=== PATIENT | female | born 1980 | race Hispanic/Latino ===

== ENCOUNTER 2019-10-09 10:46 | Emergency (ER) | payer BC ==
--- OUTSIDE RECORDS SUMMARY | 2019-10-09 10:50 | XMS REPORT | Continuity of Care Document ---
:1980 Author Organization [facility] Jeremias Information [place] Care Team Providers Name Role Phone [facility] Information Exchange Unavailable Un available Problems Problem Status Onset Classification Date Comments Sourc e Date Reported Active [facility] 7 Jeremias 2, 0, EDC: Active [facility] 3//- 39 7 [place] WKS 0 DAYS PRIOR FOLLOW UP Active [facility] 7 [place] Patient Resolved Problem 10/17/2018 currently 6 Olayinka Rodriguez OPID (finding) Jennifer ABDOMINAL Active [facility] PAIN 6 [place] CRAMPING Active [place] [id number] Jeremias ABDOMINAL Active [facility] CRAMPING 6 Jerem[place] HX Active [facility] , HX 6 [place] PRE-ECLAMPSIA Active [facility] 6 [place] Gastric ulcer Resolved Problem 10/17/2018 (disorder) 6 [place] OPID Jennifer 625.9 - FEM Active OPIMatias GENITAL SYM 5 [place] Pain Active Problem 10/17/2018 (finding) Olayinka Rodriguez OPID Jennifer ENCOUNTER FOR Active Memori al Jeremias DELIVERY WITHOUT Medications Medication Details Route Status Patient Ordering Order Source Instructions Provider Date ferrous sulfate 325 mg = 1 tab, Active 325 MG Oral Tablet PO, TID, # 90 2016 Jennifer tab, 1 Refill(s) sodium chloride 1,000 mL, Rate: No Longer 0.9% 1000 ml INJ 100 ml/hr, Active 2016 [place] farida 1,000 mL Infuse over: 10 hr, Route: IV, Dosing Weight 70.455 kg, Total Volume: 1,000, Start date: 07/05/16 8:06:00 PERINATAL INSTRUCTOR, Duration: 30 day, Stop date: 08/04/16 8:05:00 CDT Benadryl 50 mg, 2 tab, Inactive Route: PO, Drug 2016 [place] form: TAB, ONCE, Dosing Weight 70.455, kg, Start date: 07/05/16 7:47:00 PERINATAL INSTRUCTOR, Stop date: 07/05/16 7:47:00 PERINATAL INSTRUCTOR Benadryl Notes: (Same Inactive as: Benadryl) 2016 [place] ferrous sulfate Notes: Give No Longer with food. iron Active 2016 [place] elemental 88sh=885ml as ferrous sulfate Dose=___mg elemental iron sennosides, LONGTERM Notes: (Same No Longer H as: Senokot) Active 2016 [place] Acetaminophen 300 1 - 2 tab, PO, Active MG / Codeine Q4H, PRN Pain, 2016 [place] [facility] Phosphate 15 MG # 30 tab, 0 Oral Tablet Refill(s) Docusate Sodium 100 mg = 1 cap, Active 100 MG Oral PO, BID, PRN 2016 [place] Capsule [Colace] Constipation, # 60 cap, 0 Refill(s) Motrin 600 mg oral 600 mg = 1 tab, Active 07/04 tablet PO, Q6H, PRN 2017 [place] Pain, take with food, # 30 tab, 0 Refill(s) Ibuprofen Notes: (Same No Longer as: Motrin) "Do Active 2016 [place] Not Crush" Take with food. Phenergan Notes: Do not No Longer give IV push. Active 2016 [place] (Same as: Phenergan) Saline Flush 0.9% Notes: (Same No Longer as: BD Active 2016 [place] Posiflush) 1 tab, Route: No Longer Multivitamins oral PO, Drug Form: Active 2016 [place] tablet TAB, Dosing Weight 70.455, kg, Daily, Start date: 07/03/16 9:00:00 PERINATAL INSTRUCTOR, Duration: 30 day, Stop date: 08/01/16 9:00:00 CDT Naloxone Notes: Same as No Longer Narcan Active 2016 [place] Acetaminophen Notes: Infuse No Longer over 15 minutes Active 2016 [place] Do not exceed 4gm/day of acetaminophen MEDICATION WASTE Product Size: 1000 mg Product Wasted: ___ mg Ketorolac 4 days No Longer MEDICATION Active 2016 [place] WASTE Product Size: 30 mg Product Wasted: ___ mg Diphenhydramine 12.5 mg, 0.5 No Longer H tab, Route: PO, Active 2016 [place] Drug form: TAB, Q6H, Dosing Weight 70.455, kg, PRN Itching, Start date: 07/03/16 8:07:00 PERINATAL INSTRUCTOR, Duration: 30 day, Stop date: 08/02/16 8:06:00 CDT Ondansetron Notes: (Same No Longer as: Zofran) Active 2016 [place] MEDICATION WASTE Product Size: 4 mg Product Wasted: ___ mg Morphine Notes: (Same No Longer as:MORPhine Active 2016 [place] Sulfate) 0.5 ML Bordetella Notes: (Tdap ) No Longer 07/03 pertussis For Adolecent Active 2016 [place] filamentous and Adult use hemagglutinin For IM Use. vaccine, Same as: Adacel inactivated 0.01 (Tdap) MG/ML / Bordetella pertussis fimbriae 2/3 vaccine, inactivated 0.01 MG/ML / Bordetella pertussis pertactin vaccine, inactivated 0.006 MG/ML / Bordetella pertussis toxoid vacci M-M-R II Notes: (Same No Longer as: M-M-R II) Active 2016 [place] (measles-mumps- rubella virus vaccine 0.5 ml INJ VL) WASTE: F/P - Red; E -Red GIVE PRIOR TO DISCHARGE Acetaminophen 325 Notes: Do not No Longer MG / Hydrocodone exceed 4gm/day Active 2016 [place] Bitartrate 10 MG of Oral Tablet acetaminophen. (Same as: [place] 325/10) Acetaminophen 325 Notes: (Same No Longer MG / Hydrocodone as: [place] Active 2016 Elizabeth and Bitartrate 5 MG 325/5) Do not Oral Tablet exceed 4gm/day of acetaminophen. Saline Flush 0.9% Notes: (Same No Longer as: BD Active 2016 [place] Posiflush) zolpidem Notes: (Same No Longer As: Ambien) Active 2016 [place] Simethicone Notes: (Same No Longer as: Mylicon) Active 2016 [place] Acetaminophen Notes: Do not No Longer exceed 4 Active 2016 [place] gm/day. (Same as: Tylenol) lanolin topical 1 appl, Route: No Longer cream TOP, PRN, Drug Active 2016 [place] form: CRM, PRN Other -See Comment, Start date: 07/03/16 7:21:00 PERINATAL INSTRUCTOR, Duration: 30 day, Stop date: 08/02/16 8:20:00 CDT Docusate Notes: (Same No Longer as: Colace) (Do Active 2016 [place] Not Crush) Bisacodyl Notes: (Same No Longer As: Dulcolax, Active 2016 [place] Bisco-Lax) Lactated Ringers 1,000 mL, Rate: No Longer 07/03 1,000 mL 100 ml/hr, Active 2016 [place] Infuse over: 10 hr, Route: IV, Dosing Weight 70.455 kg, Total Volume: 1,000, Start date: 07/03/16 7:21:00 PERINATAL INSTRUCTOR, Duration: 30 day, Stop date: 08/02/16 7:20:00 CDT oxytocin 30 unit Notes: (Same Inactive H in D5LR 500mL 30 as: 2016 [facility] d unit OXYTOCIN-D5LR) Cefazolin Notes: Same as: Inactive Ancef 2016 [place] Misoprostol Notes: (Same Inactive as:Cytotec) 2016 [place] Take with food Methylergonovine Notes: (Same Inactive H as:Methergine) 2016 [place] Carboprost Notes: (Same Inactive As: Hemabate) 2016 [place] valacyclovir 1000 1 gm = 1 tab, No Longer MG Oral Tablet PO, Q8H, 0 Active 2016 [facility] nd [Valtrex] Refill(s) Morphine Notes: (Same Inactive as:MORPhine 2016 [place] Sulfate) Ondansetron Notes: (Same Inactive as: Zofran) [address] [place] [address] MEDICATION WASTE Product Size: 4 mg Product Wasted: ___ mg Metoclopramide Notes: (Same Inactive as: Reglan) 2016 [place] oxytocin 30 unit Notes: (Same Inactive H in D5LR 500mL 30 as: 2016 [place] unit OXYTOCIN-D5LR) Citric Acid / Notes: (Same Inactive sodium citrate As: Bicitra) 2016 [facility] Terbutaline Notes: DO NOT Inactive USE IN JOURNEYMAN MECHANIC 2017 [place] AREA (Same As: Brethine) Calcium Chloride 1,000 mL, Rate: Inactive 0.0014 MEQ/ML / 125 ml/hr, 2016 [place] and Potassium Chloride Infuse over: 8 0.004 MEQ/ML / hr, Route: IV, Sodium Chloride Dosing Weight 0.103 MEQ/ML / 70.455 kg, Sodium Lactate Total Volume: 0.028 MEQ/ML 1,000, Start Injectable date: 07/03/16 Solution 6:16:00 PERINATAL INSTRUCTOR, Duration: 30 day, Stop date: 08/02/16 6:15:00 CDT Omeprazole 5 mg, Route: No Longer PO, Daily, Active 2015 [place] Dosing Weight 64.091, kg, Start date: 03/02/16 9:00:00 CDT, Duration: 30 day, Stop date: 03/31/16 9:00:00 PERINATAL INSTRUCTOR 1 tab, Route: No Longer Multivitamins with PO, Drug Form: Active 2015 [place] Folic Acid 0.4 mg TAB, Dosing oral tablet Weight 64.091, kg, Daily, Start date: 03/02/16 9:00:00 CDT, Duration: 30 day, Stop date: 03/31/16 9:00:00 PERINATAL INSTRUCTOR Aspirin Notes: Take No Longer with food. Active 2015 [place] Protonix Notes: Tablet No Longer should not be Active 2015 [place] chewed or crushed. Cholecalciferol 1 tab, CHEW, Active 400 UNT / Folic Daily, 0 2015 [place] Acid 1 MG / Refill(s) pyridoxine 2 MG / Riboflavin 1.7 MG / Vitamin B 12 0.008 MG Chewable Tablet Omeprazole PO, Daily, 0 Active Refill(s) 2015 [place] Aspirin 81 mg, PO, Active Daily, 0 2015 [place] Refill(s) Tylenol Notes: Do not Inactive exceed 4 2015 [place] gm/day. (Same as: Tylenol) Bicitra oral Notes: (Same Inactive solution As: Bicitra) 2015 [place] D5W in Lactated 1,000 mL, Rate: Inactive Ringers 1,000 mL 150 ml/hr, 2015 [facility] Infuse over: 6.7 hr, Route: IV, Dosing Weight 64.091 kg, Total Volume: 1,000, Start date: 03/01/16 19:07:00 CDT, Duration: 30 day, Stop date: 03/31/16 19:06:00 PERINATAL INSTRUCTOR Allergies, Adverse Reactions, Alerts Substance Category Reaction Severity Reaction Status Date Comments S ource type Reported No Known Assertion Drug OP ID Medication allergy Elizabeth and Allergies Immunizations No Data Provided for This Section Results Order Name Results Value Reference Date Interpretation Comments Lila rce Range HEMATOLOGY Hct 26.4 36.0 - 07/05 MH 48.0 [place] HEMATOLOGY Hgb 8.7 12.0 - 07/05 16.0 [place] BLOOD BANK RBC product Product available 2 07/05 [facility] RESULTS (07/05/16 6:58 AM) Comment: Darrell nd 07/05/2016 07:13 [id number]
Notified Tg Prado RN that the blood product was available 07/05/2016 07:11 [place] HEMATOLOGY Microcyte 1+ None Seen 07/05 MH *ABN* /2016 [place] (07/05/16 6:25 AM) HEMATOLOGY Eosinophils 0.2 0.0 - 0.5 07/05 MH # /2016 [place] HEMATOLOGY Basophils # 0.1 0.0 - 0.2 07/05 [place] HEMATOLOGY Segs 77.7 45.0 - 07/05 75.0 /2016 [place] HEMATOLOGY Monocytes 4.2 2.0 - 12.0 07/05 /2016 [place] HEMATOLOGY Lymphocytes 16.2 20.0 - 07/05 MH 40.0 [place] HEMATOLOGY Eosinophils 1.5 0.0 - 4.0 07/05 MH /2016 [place] HEMATOLOGY Basophils 0.4 0.0 - 1.0 03/ MH /2016 [place] HEMATOLOGY Segs-Bands # 9.6 1.5 - 8.1 07/05 MH /2016 [place] HEMATOLOGY Monocytes # 0.5 0.0 - 0.8 07/05 MH /2016 [place] HEMATOLOGY Lymphocytes 2.0 1.0 - 5.5 07/05 MH # /2017 [place] HEMATOLOGY WBC X 10x3 12.4 3.7 - 10.4 07/05 MH /2016 [place] HEMATOLOGY Hgb 6.3 12.0 - 07/05 Result MH 16.0 Comment: [place] Critical Result(s) called to Tristin at 07/05/2016 06:42 by tp. Read back OK. HEMATOLOGY Hct 19.7 36.0 - 07/05 MH 48.0 [place] HEMATOLOGY RBC X 10x6 2.71 4.20 - 07/05 MH 5.40 /2016 [place] HEMATOLOGY RDW 15.4 11.5 - 07/05 MH 14.5 [place] HEMATOLOGY MPV 8.3 7.4 - 10.4 07/05 MH /2016 [place] HEMATOLOGY Platelet 226 133 - 450 03 MH /2016 [place] HEMATOLOGY MCHC 32.1 32.0 - 03 MH 36.0 /2016 [place] HEMATOLOGY MCV 72.8 80.0 - 07/05 MH 98.0 /2016 [place] HEMATOLOGY MCH 23.4 27.0 - 07/05 MH 31.0 /2016 [place] HEMATOLOGY Hgb 7.0 12.0 - 07/04 Result 16.0 Comment: [place] Critical Result(s) called to Lisa at 07/04/2016 06:03 by tp. Read back OK. HEMATOLOGY Hct 21.3 36.0 - 07/04 MH 48.0 /2016 [place] BLOOD [facility] Rhig Reqd See Note 1 07/03 Result RESULTS (07/03/16 6:47 AM) /2016 Comment: Darrell nd 07/03/2016 07:27 [id number]
This patient is not a candidate for Rh(O)D immune globulin. BLOOD BANK ABO/Rh O POS 07/03 MH RESULTS /2016 [place] BLOOD BANK Antibody Negative 07/03 RESULTS Scrn (07/03/16 6:47 AM) /2017 [facility] HEMATOLOGY MPV 8.7 7.4 - 10.4 03 [place] HEMATOLOGY WBC X 10x3 8.6 3.7 - 10.4 07/03 [place] HEMATOLOGY RBC X 10x6 3.82 4.20 - 03/ MH 5.40 /2016 [place] HEMATOLOGY Platelet 252 133 - 450 03 [place] HEMATOLOGY MCH 23.6 27.0 - 03 MH 31.0 [place] HEMATOLOGY RDW 15.5 11.5 - 03 MH 14.5 [place] HEMATOLOGY MCV 72.6 80.0 - 03 MH 98.0 [place] HEMATOLOGY MCHC 32.6 32.0 - 03 MH 36.0 [place] HEMATOLOGY Microcyte 1+ None Seen 07/03 MH *ABN* /2016 [place] (07/03/16 6:47 AM) HEMATOLOGY Basophils # 0.1 0.0 - 0.2 07/03 [place] HEMATOLOGY Eosinophils 0.1 0.0 - 0.5 07/03 MH # /2016 [place] HEMATOLOGY Lymphocytes 29.2 20.0 - 03 MH 40.0 [place] HEMATOLOGY Segs-Bands # 5.4 1.5 - 8.1 07/03 [place] HEMATOLOGY Monocytes # 0.5 0.0 - 0.8 07/03 [place] HEMATOLOGY Segs 63.5 45.0 - 03 MH 75.0 [place] HEMATOLOGY Basophils 1.0 0.0 - 1.0 07/03 [place] HEMATOLOGY Monocytes 5.6 2.0 - 12.0 07/03 [place] HEMATOLOGY Eosinophils 0.7 0.0 - 4.0 07/03 [place] HEMATOLOGY Lymphocytes 2.5 1.0 - 5.5 07/03 MH # /2016 [place] IMMUNOLOGY Treponemal Non Reactive Non 07/03 MH Scr *NA* Reactive /2016 [place] (07/03/16 6:47 AM) IMMUNOLOGY Hep Bs Ag Negative Negative 07/03 *NA* /2016 [place] (07/03/16 6:47 AM) CHEM PANEL Lipase Lvl 149 73 - 393 03/02 [place] CHEM PANEL Amylase Lvl 54 25 - 115 03/02 [place] ELECTROLYTE AGAP 13.8 10.0 - 03/02 S 20.0 [place] ELECTROLYTE B/C Ratio 10 6 - 25 03/02 [place] ELECTROLYTE A/G Ratio 0.7 0.7 - 1.6 03/02 [place] ELECTROLYTE Globulin 4.3 2.7 - 4.2 03/02 [place] ELECTROLYTE eGFR 112 03/02 S Comment: The [place] eGFR is calculated using the CKD-EPI formula. In most young, healthy individuals the eGFR will be >90 mL/min/1.73m2 . The eGFR declines with age. An eGFR of 60-89 may be normal in some populations, particularly the elderly, for whom the CKD-EPI formula has not been extensively validated. Use of the eGFR is not recommended in the following populations:< br/>
Willa viduals with unstable creatinine concentration s, including patients and those with serious co-morbid conditions.<b r/>
Patie nts with extremes in muscle mass or diet.

The data above are obtained from the National Kidney Disease Education Program (NKDEP) which additionally recommends that when the eGFR is used in patients with extremes of body mass index for purposes of drug dosing, the eGFR should be multiplied by the estimated BMI. ELECTROLYTE Total 7.1 6.4 - 8.4 03/02 S Protein [place] ELECTROLYTE Bili Total 0.3 0.2 - 1.3 03/02 [place] ELECTROLYTE ASPARTATE 15 0 - 37 03/02 S TRANSAMINASE [place] ELECTROLYTE Calcium Lvl 8.5 8.5 - 10.5 03/02 [place] ELECTROLYTE ALANINE 17 0 - 65 03/02 S AMINOTRANSFE [place] RAS ELECTROLYTE Albumin Lvl 2.8 3.5 - 5.0 03/02 [place] ELECTROLYTE Alk Phos 65 39 - 136 03/02 [place] ELECTROLYTE Glucose Lvl 86 70 - 99 03/02 [place] ELECTROLYTE BUN 7 7 - 22 03/02 S [place] ELECTROLYTE Creatinine 0.71 0.50 - 03/02 S Lvl 1.40 [place] ELECTROLYTE Sodium Lvl 140 135 - 145 03/02 S [place] ELECTROLYTE Chloride Lvl 109 95 - 109 03/02 MH S [place] ELECTROLYTE Potassium 3.8 3.5 - 5.1 03/02 MH S Lvl /2015 [place] ELECTROLYTE CO2 21 24 - 32 03/02 MH S [place] HEMATOLOGY MCH 28.9 27.0 - 03/02 MH 31.0 [place] HEMATOLOGY Hct 31.8 36.0 - 03/02 MH 48.0 [place] HEMATOLOGY Hgb 11.0 12.0 - 03/02 MH 16.0 [place] HEMATOLOGY RBC X 10x6 3.82 4.20 - 03/02 MH 5.40 [place] HEMATOLOGY MCHC 34.8 32.0 - 03/02 MH 36.0 [place] HEMATOLOGY MPV 8.2 7.4 - 10.4 03/02 [place] HEMATOLOGY RDW 12.9 11.5 - 03/02 MH 14. [place] HEMATOLOGY Platelet 240 133 - 450 03/02 [place] HEMATOLOGY WBC X 10x3 7.8 3.7 - 10.4 03/02 [place] HEMATOLOGY MCV 83.1 80.0 - 03/02 MH 98.0 [place] HEMATOLOGY Segs 71.9 45.0 - 03/02 MH 75.0 [place] HEMATOLOGY Monocytes 5.4 2.0 - 12.0 03/02 [place] HEMATOLOGY Lymphocytes 20.9 20.0 - 03/02 MH 40.0 [place] HEMATOLOGY Basophils 0.5 0.0 - 1.0 03/02 [place] HEMATOLOGY Lymphocytes 1.6 1.0 - 5.5 03/02 MH # /2016 [place] HEMATOLOGY Monocytes # 0.4 0.0 - 0.8 03/02 [place] HEMATOLOGY Eosinophils 0.1 0.0 - 0.5 03/02 MH # /2015 [place] HEMATOLOGY Segs-Bands # 5.6 1.5 - 8.1 03/02 [place] HEMATOLOGY Eosinophils 1.3 0.0 - 4.0 03/02 [place] Pathology Reports No Data Provided for This Section Diagnostic Reports Report Value Date Source Breast Complete Uni 10/15/2018 OPID [facility] US COMPLETE ULTRASOUND OF RIGHT BREAST AND AXILLA: 10/15/2018 CLINICAL: N64.4 Mastodynia/Rt Breast Pain. COMPARISON:Comparison is mad e to exams dated: 08/03/2018 mammogram and 08/03/2018 ultrasound - [facility]. TECHNIQUE: Color flow and re al-time ultrasound of the right breast four quadrants, retroareolar, and axilla regions were performed. FINDINGS: No abnormalities were seen s onographically in the right breast or the right axilla. No suspicious sonographic fi ndings are identified. The visualized axillary kavita basins are within normal limits. IMPRESSION: BENIGN RECOMMENDATION:There is no sonographic evidence of malignancy. A 5 year screening mammogram is recommended.(10/15/2023) This exam was interpreted at [id number] for BHAVANI Will 15. SUMMARY: Dr. Young discussed the ab ove findings with the patient at the time of the examination. Clinical follow-up is recommended for the patients reported area of pain. Professional services are pr ovided by the [facility] M[facility] [place] Division of Diagnostic Imaging. Juju mitchell/anaila:10/15/2018 09:52:39 Irrigation System Operator(s): Daisy Arceo [facility] letter sent: BI-RADS 1/2 Ultrasound BI-RADS: 2 Benign Breast Complete Uni 08/03/2018 ALEX [facility] US COMPLETE ULTRASOUND OF LEFT BREAST AND AXILLA: CLINICAL: N63.20 Unspecified Lump In The Left Breast, Unspecified Quadrant/Lt Breast Lump. COMPARISON:Comparison is mad e to exam dated: 08/03/2018 mammogram - [facility]. TECHNIQUE: Color flow and re al-time ultrasound of the left breast four quadrants and axilla regions were performed. FINDINGS: The area of palpable concern in the left breast corresponds with benign breast tissue. No suspicious sonographic findings are identified. The visualized axillary kavita basin is within normal limits. IMPRESSION: BENIGN RECOMMENDATION: Area of palpable concern in the left breast corresponds with benign breast tissue. There is no sonographic evidence of malignancy. A 5 year screening mammogram is recommended.(08/03/2023) This exam was interpreted at [id number] for BHAVANI Rodriguez 15. SUMMARY: Dr. Young discussed the ab ove findings with the patient at the time of the examination. Professional services are pr ovided by the [facility] Division of Diagnostic Imaging. Juju mitchell/analia:08/03/2018 15:27:15 Irrigation System Operator(s): Lillian Suresh letter sent: BI-RADS 1/2 Ultrasound BI-RADS: 2 Benign Breast Mammo Diag DENNY 08/03/2018 YASSINE OPID Azael hopper w ezio incl CAD MA BILATERAL FIRST EVER DIGITAL DIAGNOSTIC MAMMOGRA M 3D/2D WITH CAD: 08/03/2018 CLINICAL: N63.20 Unspecified Lump In The Left Breast, Unspecified Quadrant/N63.20. Current study was evaluated with a User Acceptance Tester d Detection (CAD) system. COMPARISON:No prior exams were available for kaylen mesa. TECHNIQUE: Digital Breast To mosynthesis was performed and utilized for Interpretation. Current study was also evaluated with a Computer Aided Detection (CAD) system. FINDINGS: The tissue of both breasts i s extremely dense. This may lower the sensitivity of mammography. There is a palpable finding in the left breast upper outer quadrant. There is no mammographic abnormality in the region of palpable concern. No significant masses, calci fications, or other findings are seen in either breast. IMPRESSION: INCOMPLETE: NEEDS ADDITIONAL IMAGING EVALUATION RECOMMENDATION:Area of palpa ble concern in the left breast requires additional evaluation. An ultrasound is recommended. This exam was interpreted at [id number] for YASSINE hopper, SL 15. SUMMARY: Ultrasound will be performed at this time; please see dedicated separate report. Professional services are pr ovided by the [facility] Division of Diagnostic Imaging. Juju mitchell/analia:08/03/2018 15:00:28 Irrigation System Operator(s): RT Estiven(R)(M), Talia Rodriguez Mammogram BI-RADS: 0 Indeterminate Consultation Notes No Data Provided for This Section Discharge Summaries No Data Provided for This Section History and Physicals No Data Provided for This Section Vital Signs Vital Sign Value Date Comments Source Temperature Oral (F) 98.1 F 07/05/2016 YASSINE iqbal Systolic (mm Hg) 104 07/05/2016 YASSINE Rodriguez Diastolic (mm Hg) 69 07/05/2016 [place] Systolic (mm Hg) 114 07/05/2016 [facility] Diastolic (mm Hg) 72 07/05/2016 [place] Respitory Rate 18 07/05/2016 [place] Respitory Rate 18 07/05/2016 [facility] Systolic (mm Hg) 106 07/05/2016 [facility] Diastolic (mm Hg) 72 07/05/2016 [facility] Temperature Oral (F) 98.7 F 07/05/2016 [place] [facility] Temperature Oral (F) 98.6 F 07/05/2016 [place] Respitory Rate 18 07/05/2016 [facility] Weight 70.455 07/03/2016 [facility] BMI Calculated 28.41 07/03/2016 [facility] Height 157.48 cm 07/03/2016 [facility] BMI Calculated 25.84 03/02/2016 [facility] Weight 64.091 03/02/2016 [facility] Height 157.48 cm 03/02/2016 [facility] Systolic (mm Hg) 111 03/02/2016 [facility] Diastolic (mm Hg) 75 03/02/2016 [place] Encounters Location Location Encounter Encounter Reason Attending ADM DC Stat us Source Details Type Number For Provider Date Date Visit [facility] [id number] [place] 02/19 03/21 [place] [address] [facility] Emergency [id number] [place] 03/01 03/01 MH [place] 2 Joel [facility] Observation [id number] [place] 03/01 03/02 Jerem[place] [address] [facility] Recurring [id number] [place] 04/23 05/23 MH [place] [address] [facility] Recurring [id number] Tamica 05/28 06/27 MH [place] [address] [facility] Inpatient [id number] Tamica 07/03 07/05 MH [place] [address] [facility] PreAdmit [id number] [place] 07/04 07/04 M H [place] 0 [facility] Outpt Diag [id number] Beth 08/03 08/04 OPID Outpatient Services 2 [place] [facility] Outpt Diag [id number] Tamica 10/15 10/16 Olayinka JOHNSON [facility] Imaging [place] Procedures Procedure Code Date Perfomer Comments Source Diagnostic [id number] 05/05/2015 YASSINE Will endoscopy ALEX [place] Colonoscopy [id number] 05/05/2013 Olayinka Will [place] Myomectomy [id number] 09/03/2011 YASSINE Will [place] Assessment and Plan Assessment and Plan Date Source Extracted from:Title: Brief Note 07/05/2016 YASSINE Rodriguez Author: Alexandria Barker MD Date: 07/05/16 LATE ENTRY FOR 0800 POD#2 s/p section with BTL, history of myomectomy, anemia EBL 900 ml Hgb/Hct 9/27.7 (pre-op) --> 7/Hct 21.3 (POD#1) --> 6.3/19.7 (POD#2) Patient with additional questions and co ncerns regarding blood transfusion. States that she is currently asymptomatic. I discussed patient's chronic anemia and physiologic compensation of healthy young women with potential for sudden/rapid decompensation. Patient had previously disclosed to RN this morning that her compliance with an iron-rich d iet/iron supplementation has been poor throughout . I discussed efficacy of iron supplementation and time required for correction of anemia with po suppl ementation. I discussed the risk of hig h output cardiac failure and syncope with uncorrected severe anemia; I also discussed potential management for these conditions should they occur. I discussed ris ks of blood transfusion and indications for pre-medication with benadryl and acetaminophen. Patient's questions were solicited and answered. She verbalized understanding and voiced desire to proceed with transfusion of 2 u pRBCs at this time. Patient aware that her discharge will be pending repeat post-transfusion CBC 1-2 hours after 2nd unit completed. Pt also aware that if inappropriate rise in Hgb/Hct, she may need additional units of blo od to stabilize her condition prior to d ischarge. She verbalized understanding and agrees with plan of care. Extracted from:Title: OB LTC/S BTL Delivery Procedure/L&D Padilla mmary * Author: Tamica Nowak MD Date: 07/03/16 Impression and Plan Diagnosis Encounter for tubal ligation ([id number] Z30.2, Working, Medic al). 39 weeks gestation of (AYV06-SB Z3A.39, Working, M edical). w/ hx of uterine myomectomy ([id number]-NR O34.29, Work ing, Medical). condition: Stable. Maternal condition: Stable. Course: Progressing as expected. Extracted from:Title: OB H&P Author: Tamica Nowak MD Date: 07/03/16 Impression and Plan Diagnosis 39 weeks gestation of (NKP89-PM Z3A.39, Working, M edical). w/ hx of uterine myomectomy ([id number]-PF O34.29, Work ing, Medical). Encounter for tubal ligation (KVI56-KG Z30.2, Working, Medic al). category: 1. Maternal condition: Stable. Plan Admit. Labor and Delivery. Plan for primary section and tubal ligation. Education and Follow-up: Counseled: Patient. Plan of Care No Data Provided for This Section Social History Social History Date Source Social History TypeResponse 07/03/2016 [place] Sexual Sexually active: Yes. Partner with STD? No. History of sex ual abuse: No. Smoking Status Never smoker; Exposure to Tobacco Smoke None; Cigarette Smoking Last 365 Days No; Reg Smoking Cessation Counseling No Social History TypeResponse 07/03/2016 [place] Sexual Sexually active: Yes. Partner with STD? No. History of sex ual abuse: No. Smoking Status Never smoker; Exposure to Tobacco Smoke None; Cigarette Smoking Last 365 Days No; Reg Smoking Cessation Counseling No entered on: 07/03/16 Family History No Data Provided for This Section Advance Directives No Data Provided for This Section Functional Status No Data Provided for This Section
[2019-10-09] MEDS ORDERED: METOCLOPRAMIDE 10 MG/2mL INJ ONE (12:44)
[2019-10-09] MEDS ORDERED: KETOROLAC 30 MG/ML INJ ONE (12:45)
[2019-10-09] MEDS ORDERED: DIPHENHYDRAMINE 50 MG/ML VIAL ONE (12:45)
[2019-10-09] MEDS ORDERED: NA CHLORIDE 0.9% 0 ML ONE (12:45)
[2019-10-09 13:20] LABS: Urine Blood TRACE (NEG); Urine Glucose NEGATIVE (NEG); Urine Protein NEGATIVE (NEG); Urine pH 5.5 (5.0-7.0)
--- NOTE | 2019-10-09 13:28 | RAD REPORT ---
EXAM DESCRIPTION: CT - Head Brain Wo Cont - 10/09/2019 12:59 pm CLINICAL HISTORY: HEADACHE COMPARISON: No comparisons TECHNIQUE: Axial 5 mm thick images of the head were obtained without IV contrast. All CT scans are performed using dose optimization technique as appropriate and may include automated exposure control or mA/KV adjustment according to patient size. FINDINGS: No intracranial hemorrhage, mass, edema or shift of mid-line structures. No acute infarcti on changes seen. No abnormal extra-axial fluid collections. Ventricles are normal. Mastoid air cells and visualized portions of the paranasal sinuses are clear. No acute bony findings. IMPRESSION: Negative non-contrast CT head examination.
--- NOTE | 2019-10-09 13:37 | EDPHYS ---
Physician Documentation [facility] Name: Cassia Mcconnell Age: 38 yrs Sex: Female : 1980 Arrival Date: 10/09/2019 Time: 10:49 Bed 19 Private MD: ED Physician Hugo Bar HPI: 10/08 12:30 This 38 yrs old Female presents to ER via Ambulatory with complaints of pm1 Headache, Nausea. 12:30 The patient complains of pain to the right side of head. The patient describes the pm1 headache as aching. Onset: The symptoms/episode began/occurred 2 week(s) ago. Associated signs and symptoms: Pertinent positives: tingling to right side of face for 1 month, nausea with headaches for the past 2 weeks. Severity of symptoms: in the emergency department the pain has improved. The symptoms are alleviated by nothing. the symptoms are aggravated by nothing. The patient has not recently seen a physician. Historical: - Allergies: 11:08 No Known Allergies; ss - Immunization history:: Adult Immunizations up to date. - Social history:: Smoking status: Patient denies any tobacco usage or history of. ROS: 12:30 Constitutional: Negative for fever, chills, and weight loss, Eyes: Negative for injury, pm1 pain, redness, and discharge, ENT: Negative for injury, pain, and discharge, Neck: Negative for injury, pain, and swelling, Cardiovascular: Negative for chest pain, palpitations, and edema, Respiratory: Negative for shortness of breath, cough, wheezing, and pleuritic chest pain. 12:30 Back: Negative for injury and pain, MS/Extremity: Negative for injury and deformity, Skin: Negative for injury, rash, and discoloration. 12:30 Abdomen/GI: Positive for nausea. 12:30 Neuro: Positive for headache, Tingling to right side of face, Negative for dizziness, weakness. Exam: 12:30 Constitutional: This is a well developed, well nourished patient who is awake, alert, pm1 and in no acute distress. Head/Face: Normocephalic, atraumatic. ENT: Nares patent. No nasal discharge, no septal abnormalities noted. Tympanic membranes are normal and external auditory canals are clear. Oropharynx with no redness, swelling, or masses, exudates, or evidence of obstruction, uvula midline. Mucous membranes moist. Neck: Trachea midline, no thyromegaly or masses palpated, and no cervical lymphadenopathy. Supple, full range of motion without nuchal rigidity, or vertebral point tenderness. No Meningismus. Chest/axilla: Normal chest wall appearance and motion. Nontender with no deformity. No lesions are appreciated. 12:30 Back: No spinal tenderness. No costovertebral tenderness. Full range of motion. Skin: Warm, dry with normal turgor. Normal color with no rashes, no lesions, and no evidence of cellulitis. MS/ Extremity: Pulses equal, no cyanosis. Neurovascular intact. Full, normal range of motion. 12:30 Cardiovascular: Exam negative for acute changes, Rate: normal, Rhythm: regular, Pulses: no pulse deficits are appreciated. 12:30 Respiratory: Exam negative for acute changes, respiratory distress, shortness of breath. 12:30 Abdomen/GI: Exam negative for acute changes, Inspection: abdomen appears normal, Palpation: abdomen is soft and non-tender, in all quadrants, mass, is not appreciated, rebound tenderness, is not appreciated. 12:30 Neuro: Exam negative for acute changes, Orientation: is normal, Mentation: is normal, Cranial nerves: CN II- XII are normal as tested, Cerebellar function: normal finger to nose testing, Motor: is normal, moves all fours, strength is normal, strength is 5/5 in all extremities, Sensation: is normal, no obvious gross deficits. Vital Signs: 11:06 BP 160 / 111; Pulse 86; Resp 15; Temp 99.0(TE); Pulse Ox 100% on R/A; Weight 62.6 kg; ss Height 5 ft. 2 in. (157.48 cm); Pain 8/10; 12:13 BP 153 / 96; Pulse 72; Resp 18; Pulse Ox 98% ; ah 13:30 BP 154 / 90; Pulse 76; Resp 18; Pulse Ox 98% ; ah 11:06 Body Mass Index 25.24 (62.60 kg, 157.48 cm) ss MDM: 11:56 Patient medically screened. pm1 13:31 Data reviewed: vital signs. Data interpreted: Pulse oximetry: on room air is 100 %. pm1 Interpretation: normal. Counseling: I had a detailed discussion with the patient and/or guardian regarding: the historical points, exam findings, and any diagnostic results supporting the discharge/admit diagnosis, radiology results, the need for outpatient follow up, for definitive care, a neurologist, to return to the emergency department if symptoms worsen or persist or if there are any questions or concerns that arise at home. 10/08 13:00 Order name: Urine Dipstick--Ancillary (enter results); Complete Time: 13:23 eb 10/08 13:00 Order name: Urine --Ancillary (enter results); Complete Time: 13:23 eb 10/08 12:30 Order name: CT Head Brain wo Cont; Complete Time: 13:30 pm1 10/08 12:30 Order name: Urine Dipstick-Ancillary (obtain specimen); Complete Time: 12:34 pm1 10/08 12:30 Order name: Urine Test (obtain specimen); Complete Time: 12:34 pm1 Administered Medications: 13:43 Not Given (Patient Refused): Reglan 10 mg IVP once; over 1 to 2 minutes ah 13:43 Not Given (Patient Refused): TORadol 30 mg IVP once ah 13:43 Not Given (Patient Refused): Benadryl 25 mg IVP once ah 13:43 Not Given (Patient Refused): NS 0.9% 1000 ml IV at 1000 ml once ah Disposition: 16:12 Co-signature as Attending Physician, Hugo Bar MD. rn Disposition: 10/09/19 13:36 Discharged to Home. Impression: Headache. - Condition is Stable. - Discharge Instructions: General Headache Without Cause. - Prescriptions for Fiorinal 50- 325-40 mg Oral Capsule - take 1 capsule by ORAL route every 4 hours As needed - not to exceed 6 capsules per day; 20 capsule. Zofran 4 mg Oral Tablet - take 1 tablet by ORAL route every 12 hours As needed; 20 tablet. - Medication Reconciliation Form, Thank You Letter, Antibiotic Education, Prescription Opioid Use form. - Follow up: Emergency Department; When: As needed; Reason: Worsening of condition. Follow up: Private Physician; When: 2 - 3 days; Reason: Recheck today's complaints, Continuance of care, Re-evaluation by your physician. - Problem is new. - Symptoms have improved. Signatures: Dispatcher [employer] EDMS Hugo Bar MD MD rn Smirch, Shelby, RN RN ss Marinas, Patrick, NP BENZOL OPERATOR pm1 Justa Flor, RN RN Corrections: (The following items were deleted from the chart) 13:43 12:30 IV Saline Lock ordered. pm1 14:17 13:36 10/09/2019 13:36 Discharged to Home. Impression: Headache. Condition is Stable. Forms are Medication Reconciliation Form, Thank You Letter, Antibiotic Education, Prescription Opioid Use. Follow up: Emergency Department; When: As needed; Reason: Worsening of condition. Follow up: Private Physician; When: 2 - 3 days; Reason: Recheck today's complaints, Continuance of care, Re-evaluation by your physician. Problem is new. Symptoms have improved. pm1
--- NOTE | 2019-10-09 13:37 | ER ---
Nurse's Notes [facility] Name: Cassia Mcconnell Age: 38 yrs Sex: Female : 1980 Arrival Date: 10/09/2019 Time: 10:49 Bed 19 Private MD: Diagnosis: Headache Presentation: 10/08 11:06 Chief complaint: Patient states: headache, lightheadedness and nausea that began two ss weeks ago. Pt also c/o intermittent tingling to R side of face x 1 month. Coronavirus screen: Proceed with normal triage. Patient denies a cough. Patient denies shortness of breath or difficulty breathing. Patient denies measured and/or subjective temperature greater than 100.4F prior to today's visit. Patient denies travel on a cruise ship or to a country the [facility] currently lists as an affected area. Patient denies contact with known and/or suspected case of COVID-19. Ebola Screen: Patient denies exposure to infectious person. Patient denies travel to an Ebola-affected area in the 21 days before illness onset. Initial Sepsis Screen: Does the patient meet any 2 criteria? No. Patient's initial sepsis screen is negative. Does the patient have a suspected source of infection? No. Patient's initial sepsis screen is negative. Risk Assessment: Do you want to hurt yourself or someone else? Patient reports no desire to harm self or others. Onset of symptoms was September 2019. 11:06 Method Of Arrival: Ambulatory ss 11:06 Acuity: LUCINDA 3 ss Triage Assessment: 13:58 Headache History: The patient has had previous headaches and this one is similar to previous episodes. General: Appears in no apparent distress. Pain: Pain at worst was 10 out of 10 on a pain scale. Also complains of nausea. Historical: - Allergies: 11:08 No Known Allergies; ss - Immunization history:: Adult Immunizations up to date. - Social history:: Smoking status: Patient denies any tobacco usage or history of. Screenin:46 Abuse screen: Denies threats or abuse. Nutritional screening: No deficits noted. Tuberculosis screening: No symptoms or risk factors identified. Fall Risk None identified. Assessment: 11:30 General: Appears in no apparent distress. Behavior is calm, cooperative. Pain: Complains of pain in right side of face and head Pain began 2 weeks but became worse yesterday. Neuro: Level of Consciousness is awake, alert, Oriented to person, place, time, situation, Appropriate for age [employer] W[employer] Tester are equal bilaterally Moves all extremities. Gait is steady, Speech is normal, Facial symmetry appears normal, Pupils are PERRLA, Reports dizziness, numbness in right side of face. Cardiovascular: Heart tones S1 S2 present Capillary refill < 3 seconds Patient's skin is warm and dry. Respiratory: Airway is patent Respiratory effort is even, unlabored, Respiratory pattern is regular, symmetrical. GI: Abdomen is non-distended, Reports nausea, Patient currently denies vomiting. Derm: Skin is intact, is healthy with good turgor. 13:00 Reassessment: Pt decided that she does not want an IV or any of the ordered medications. She states that meds affect her weird and she would rather go home and rest. Provider at bedside and aware. 14:00 Reassessment: Discharge instructions given to Pt and educated on prescriptions. Pt ah voiced understanding. Advised Pt to follow up with neurologist for headaches. Vital Signs: 11:06 BP 160 / 111; Pulse 86; Resp 15; Temp 99.0(TE); Pulse Ox 100% on R/A; Weight 62.6 kg; ss Height 5 ft. 2 in. (157.48 cm); Pain 8/10; 12:13 BP 153 / 96; Pulse 72; Resp 18; Pulse Ox 98% ; ah 13:30 BP 154 / 90; Pulse 76; Resp 18; Pulse Ox 98% ; ah 11:06 Body Mass Index 25.24 (62.60 kg, 157.48 cm) ED Course: 10:49 Patient arrived in ED. fj1 11:08 Triage completed. ss 11:08 Arm band placed on right wrist. ss 11:52 Doni Taylor, JULIANA is PHCP. pm1 11:52 Hugo Bar MD is Attending Physician. pm1 12:34 Justa Flor, RN is Primary Nurse. 12:44 Radiology exam delayed due to justa attempting to start an iv \T\ this time. to call when bq pt is ready. 12:59 CT Head Brain wo Cont In Process Unspecified. EDMS 12:59 CT completed. Patient tolerated procedure well. Patient moved back from CT. bq 13:47 Patient has correct armband on for positive identification. Bed in low position. Call light in reach. Pulse ox on. NIBP on. 13:57 No provider procedures requiring assistance completed. Missed attempt(s): 22 gauge in right antecubital area. 13:58 Patient did not have IV access during this emergency room visit. Administered Medications: 13:43 Not Given (Patient Refused): Reglan 10 mg IVP once; over 1 to 2 minutes 13:43 Not Given (Patient Refused): TORadol 30 mg IVP once 13:43 Not Given (Patient Refused): Benadryl 25 mg IVP once 13:43 Not Given (Patient Refused): NS 0.9% 1000 ml IV at 1000 ml once Outcome: 13:36 Discharge ordered by . pm1 14:00 Discharged to home ambulatory. 14:00 Condition: good 14:00 Discharge instructions given to patient, Instructed on discharge instructions, follow up and referral plans. medication usage, Demonstrated understanding of instructions, follow-up care, medications, Prescriptions given X 2. 14:17 Patient left the ED. Signatures: Dispatcher [employer] EDNE Mirian Cortez Shelby, RN RN Doni Taylor, JULIANA GEM STONE CUTTER pm1 Johan Ruvalcaba fj1 Justa Flor, RN RN
[2019-10-09 14:26] VITALS: TEMP 99
[2019-10-09 14:27] VITALS: O2SAT 98
[2019-10-09 14:28] VITALS: BP 154/90
== END 2019-10-09 14:17 | disposition home or self-care (01) ==
LOC: ER 10:46
DX: R51 Headache (principal)
CPT/HCPCS: 70450; 81003; 81025; 99284; J1200; J2765; J7030

== ENCOUNTER 2023-02-23 21:58 | Emergency (ER) | payer BC ==
--- NOTE | 2023-02-23 22:31 | EDPHYS ---
Physician Documentation [facility] Name: Cassia Mcconnell Age: 42 yrs Sex: Female : 1980 Arrival Date: 02/23/2023 Time: 21:58 Bed 15 Private MD: ED Physician Jona Nogueira HPI: 02/23 22:27 This 42 yrs old Female presents to ER via Ambulatory with complaints of Rectal ms3 Bleeding, Dizziness. 22:27 42-year-old female with past medical history of peptic ulcer disease presents to [place] [facility] [place] department for abdominal pain that has been ongoing for 2 weeks. Patient states today her stomach felt gassy, she became lightheaded, and developed diarrhea. Patient states when wiping the stool appeared to be brown/red. Patient states her discomfort is a 1/10. Patient denies any alleviating or inciting factors. Historical: - Allergies: 22:16 No Known Allergies; ap3 - Home Meds: 22:16 None [Active]; ap3 - PMHx: 22:16 None; ap3 - Immunization history:: Client reports receiving the 2nd dose of the Covid vaccine. - Social history:: Smoking status: Patient denies any tobacco usage or history of. ROS: 22:27 Constitutional: Negative for fever, and chills. Neck: Negative for injury, pain, and ms3 swelling, Cardiovascular: Negative for chest pain, and palpitations. Respiratory: Negative for shortness of breath, cough, wheezing, and pleuritic chest pain, 22:27 MS/Extremity: Negative for injury and deformity, Skin: Negative for injury, rash, and discoloration, 22:27 Abdomen/GI: Positive for abdominal pain, diarrhea, rectal bleeding, 22:27 All other systems are negative, Exam: 22:27 Constitutional: This is a well developed, well nourished patient who is awake, alert, ms3 and in no acute distress. Head/Face: Normocephalic, atraumatic. Neck: Trachea midline, no cervical lymphadenopathy. Supple, full range of motion without nuchal rigidity, or vertebral point tenderness. No Meningismus. Chest/axilla: Normal chest wall appearance and motion. Nontender with no deformity. Cardiovascular: Regular rate and rhythm with a normal S1 and S2. No gallops, murmurs, or rubs. Normal PMI, no JVD. No pulse deficits. Respiratory: Lungs have equal breath sounds bilaterally, clear to auscultation and percussion. No rales, rhonchi or wheezes noted. No increased work of breathing, no retractions or nasal flaring. MS/ Extremity: Pulses equal, no cyanosis. Neurovascular intact. Full, normal range of motion. 22:27 Abdomen/GI: Inspection: abdomen appears normal, Bowel sounds: hyperactive, in all quadrants, Rectal exam: rectal tone normal, Stool: maroon, soft, Vital Signs: 22:14 BP 133 / 85; Pulse 108; Resp 17; Temp 97.9; Weight 63.5 kg; Pain 1/10; ap3 23:00 BP 135 / 85; Pulse 96; Resp 17 S; Pulse Ox 99% on R/A; ha1 02/24 00:00 BP 114 / 79; Pulse 100; Resp 17 S; Pulse Ox 100% on R/A; ha1 01:00 BP 117 / 75; Pulse 99; Resp 16 S; Pulse Ox 100% on R/A; ha1 02:00 BP 114 / 77; Pulse 99; Resp 17 S; Pulse Ox 100% on R/A; ha1 02/23 22:14 Pain Scale: Adult ap3 MDM: 02/23 22:26 Patient medically screened. ms3 22:27 Differential diagnosis: PUD vs Anemia vs Upper GI Bleed. ms3 02/24 00:59 Data reviewed: vital signs, nurses notes, lab test result(s), and as a result, I will ms3 transfer patient. Consideration of Admission/Observation Patient transferred to [facility]. I considered the following discharge prescriptions or medication management in the emergency department Medications were administered in the Emergency Department. See MAR. Historians other than the Patient: Parent: Patient's mother. Counseling: I had a detailed discussion with the patient and/or guardian regarding the historical points, exam findings, and any diagnostic results supporting the discharge/admit diagnosis, lab results, the need for outpatient follow up, to return to the emergency department if symptoms worsen or persist or if there are any questions or concerns that arise at home. ED course: Discussed necessity for transfer with the patient and her family. They understand agree with plan. Patient remains in stable condition in the emergency department.. 02/23 22:30 Order name: Type And Screen ms3 02/23 23:09 Order name: Comprehensive Metabolic Panel; Complete Time: 00:25 EDMS 02/23 23:09 Order name: Lipase; Complete Time: 00:25 EDMS 02/23 23:09 Order name: CBC with Automated Diff; Complete Time: 00:25 EDMS 02/23 23:09 Order name: Test, Urine; Complete Time: 23:26 EDMS 02/23 23:09 Order name: Urinalysis w/ reflexes; Complete Time: 23:26 EDMS 02/23 23: Order name: Type and Screen; Complete Time: 00:25 EDMS 02/23 22:27 Order name: IV Saline Lock; Complete Time: 22:33 ms3 02/23 22:27 Order name: Labs collected and sent; Complete Time: 22:35 ms3 Administered Medications: 02/23 23:01 Drug: Pantoprazole IVP 40 mg IVP once Route: IVP; Site: right antecubital; [facility] 02/24 00:00 Follow up: Response: No adverse reaction [facility] 02/23 23:01 Drug: Pantoprazole IV 8 mg/hr IV at 25 ml/hr continuous; (Standard dilution is 80 mg in ha1 250 mL NS) Route: IV; Rate: 25 ml/hr; Site: right antecubital; 02/24 02:56 Follow up: Response: No adverse reaction; IV Status: Infusion continued 01:10 Drug: NS 0.9% IV 500 ml IV at bolus once Route: IV; Rate: bolus; Site: right 1 antecubital; 02:55 Follow up: Response: No adverse reaction; IV Status: Completed infusion; IV Intake: ha1 500ml Disposition Summary: 02/23/23 22:30 Transfer Ordered Notes: Transfer Location: [facility] ms3 Reason: Higher level of care ms3 Condition: Stable ms3 Problem: new ms3 Symptoms: are unchanged ms3 Accepting Physician: Accepting Physician(02/24/23 02:56) ha1 Diagnosis - Upper GI Bleed ms3 Forms: - Medication Reconciliation Form ms3 - SBAR form ms3 Critical care time excluding procedures: 00:59 Critical care time: Bedside Care: 30 minutes, Consultation: 5 minutes, Family ms3 Intervention: 5 minutes. Total time: 40 minutes Signatures: Dispatcher [employer] EDMS Prokisch, Evelyn, RN RN ap3 Jona Nogueira DO DO ms3 Tara Stone RN RN ha1 Corrections: (The following items were deleted from the chart) 02:56 02/23 22:30 Accepting Physician shanell bishop
--- NOTE | 2023-02-23 22:31 | ER ---
Nurse's Notes [facility] Name: Cassia Mcconnell Age: 42 yrs Sex: Female : 1980 Arrival Date: 02/23/2023 Time: 21:58 Bed 15 Private MD: Diagnosis: Upper GI Bleed Presentation: 02/23 22:14 Chief complaint: Patient states: she has been having abdominal pain for 2 weeks, and ap3 today she started feeling dizzy and light headed. patient also reports that today when having a bowel movement it was diarrhea and there was blood with it. patient currently rates her pain as a 1/10 and reports nausea. 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 Coronavirus screen: At this time, the client does not indicate any symptoms associated with coronavirus-19. Ebola Screen: No symptoms or risks identified at this time. Initial Sepsis Screen: Does the patient meet any 2 criteria? HR > 90 bpm. Does the patient have a suspected source of infection? Yes: Acute abdominal pain. Risk Assessment: Do you want to hurt yourself or someone else? Patient reports no desire to harm self or others. Onset of symptoms was February 09, 2023. 22:14 Method Of Arrival: Ambulatory ap3 22:14 Acuity: LUCINDA 3 ap3 Triage Assessment: 22:16 General: Appears in no apparent distress. Behavior is calm, cooperative, appropriate ap3 for age, Reports fatigue for. Pain: Complains of pain in abdomen Pain currently is 1 out of 10 on a pain scale. Neuro: Level of Consciousness is awake, alert, obeys commands, Oriented to person, place, time, situation. Cardiovascular: Patient's skin is warm and dry. Respiratory: Airway is patent Respiratory effort is even, unlabored, Respiratory pattern is regular, symmetrical. GI: Reports lower abdominal pain, upper abdominal pain, rectal bleeding, nausea. Historical: - Allergies: 22:16 No Known Allergies; ap3 - Home Meds: 22:16 None [Active]; ap3 - PMHx: 22:16 None; ap3 - Immunization history:: Client reports receiving the 2nd dose of the Covid vaccine. - Social history:: Smoking status: Patient denies any tobacco usage or history of. Screenin:17 [facility] ED Fall Risk Assessment (Adult) History of falling in the last 3 months, ha1 including since admission No falls in past 3 months (0 pts) Confusion or Disorientation No (0 pts) Intoxicated or Sedated No (0 pts) Impaired Gait No (0 pts) Mobility Assist Device Used No (0 pt) Altered Elimination No (0 pt) Score/Fall Risk Level 0 - 2 = Low Risk Oriented to surroundings, Maintained a safe environment, Educated pt \T\ family on fall prevention, incl call for assistance when getting out of bed, Hourly rounding (assess needs \T\ fall precautionary measures) done. Abuse screen: Denies threats or abuse. Denies injuries from another. Nutritional screening: No deficits noted. Tuberculosis screening: No symptoms or risk factors identified. Assessment: 22:15 General: Appears uncomfortable, Behavior is cooperative. Pain: Complains of pain in ha1 abdomen Pain does not radiate. Pain currently is 1 out of 10 on a pain scale. Neuro: Level of Consciousness is awake, alert, obeys commands, Oriented to person, place, time, situation, Reports dizziness. Cardiovascular: Capillary refill < 3 seconds Patient's skin is warm and dry. Respiratory: Airway is patent Respiratory effort is even, unlabored, Respiratory pattern is regular, symmetrical. GI: Abdomen is flat, non-distended, Bowel sounds present X 4 quads. Reports upper abdominal pain, bloody stool, nausea. : No signs and/or symptoms were reported regarding the genitourinary system. Musculoskeletal: Circulation, motion, and sensation intact. Range of motion: intact in all extremities. 23:00 Reassessment: Patient and/or family updated on plan of care and expected duration. Pain ha1 level reassessed. Patient is alert, oriented x 3, equal unlabored respirations, skin warm/dry/pink. 02/24 00:00 Reassessment: Patient and/or family updated on plan of care and expected duration. Pain ha1 level reassessed. Patient is alert, oriented x 3, equal unlabored respirations, skin warm/dry/pink. 01:00 Reassessment: Patient and/or family updated on plan of care and expected duration. Pain ha1 level reassessed. Patient is alert, oriented x 3, equal unlabored respirations, skin warm/dry/pink. 01:39 Reassessment: report given to JOE Schwarz. 1 02:27 Reassessment: Patient and/or family updated on plan of care and expected duration. Pain ha1 level reassessed. Patient is alert, oriented x 3, equal unlabored respirations, skin warm/dry/pink. awaiting on EMS Patient denies pain at this time. Vital Signs: 02/23 22:14 BP 133 / 85; Pulse 108; Resp 17; Temp 97.9; Weight 63.5 kg; Pain 1/10; ap3 23:00 BP 135 / 85; Pulse 96; Resp 17 S; Pulse Ox 99% on R/A; ha1 02/24 00:00 BP 114 / 79; Pulse 100; Resp 17 S; Pulse Ox 100% on R/A; ha1 01:00 BP 117 / 75; Pulse 99; Resp 16 S; Pulse Ox 100% on R/A; ha1 02:00 BP 114 / 77; Pulse 99; Resp 17 S; Pulse Ox 100% on R/A; ha1 02/23 22:14 Pain Scale: Adult ap3 ED Course: 02/23 22:00 Patient arrived in ED. jj6 22:09 Patient has correct armband on for positive identification. Bed in low position. Call ha1 light in reach. Side rails up X 1. Adult w/ patient. 22:10 Jona Nogueira DO is Attending Physician. ms3 22:15 Tara Stone, JOE is Primary Nurse. ha1 22:16 Triage completed. ap3 22:17 Arm band placed on right wrist. ap3 22:18 Inserted saline lock: 22 gauge in right antecubital area, using aseptic technique. ha1 Blood collected. 02/24 00:37 [id number] called [facility] to start transfer- talked to Yoanna with transfer center. sp 01:[address] Jose Ramos accepted pt to [facility]. sp 01:24 0106 UMBERTO Montero called with admin approval. bed #430 report number [phone]. sp 01:25 faxed demographics to [phone]. sp 02:53 No provider procedures requiring assistance completed. Patient transferred, IV remains ha1 in place. 02:55 Provided Education on: need for transfer . ha1 Administered Medications: 02/23 23:01 Drug: Pantoprazole IVP 40 mg IVP once Route: IVP; Site: right antecubital; ha1 02/24 00:00 Follow up: Response: No adverse reaction ha1 02/23 23:01 Drug: Pantoprazole IV 8 mg/hr IV at 25 ml/hr continuous; (Standard dilution is 80 mg in ha1 250 mL NS) Route: IV; Rate: 25 ml/hr; Site: right antecubital; 02/24 02:56 Follow up: Response: No adverse reaction; IV Status: Infusion continued ha1 01:10 Drug: NS 0.9% IV 500 ml IV at bolus once Route: IV; Rate: bolus; Site: right ha1 antecubital; 02:55 Follow up: Response: No adverse reaction; IV Status: Completed infusion; IV Intake: ha1 500ml Medication: 02/23 22:17 VIS not applicable for this client. ha1 Intake: 02/24 02:55 IV: 500ml; Total: 500ml. ha1 Outcome: 02/23 22:30 ER care complete, transfer ordered by MD. ms3 02/24 02:53 [facility] Condition: stable 02:56 Patient left the ED. ha1 Signatures: Xenia Mattson Amanda, RN RN ap3 Jona Nogueira DO DO ms3 Maru Caban6 Tara Stone, JOE RN ha1 Corrections: (The following items were deleted from the chart) 01:10 00:37 1227 called [facility] to start transfer- talked to Yoanna with transfer sp center. sp
[2023-02-23] MEDS ORDERED: NA CHLORIDE 0.9% 250 ML ONE (23:01)
[2023-02-23] MEDS ORDERED: PANTOPRAZOLE 40 MG INJ ONE (23:01)
[2023-02-23 23:23] LABS: Specific Gravity 1.027 (1.005-1.030)
[2023-02-23 23:25] LABS: Specific Gravity 1.027 (1.005-1.030); Urine Bacteria <20 /HPF (<20); Urine Bilirubin NEGATIVE (Negative); Urine Blood Negative (Negative); Urine Clarity Clear (Clear); Urine Color Light-Yellow (Yellow); Urine Glucose NEGATIVE (Negative); Urine Mucus Slight /HPF (None Seen); Urine Protein NEGATIVE (Negative); Urine RBC <5 /HPF (None Seen); Urine Urobilinogen Normal (Normal); Urine pH 5.5 (5.0-7.0)
[2023-02-23 23:27] LABS: Absolute Lymphocytes (CBC) 2.7 K/uL (0.7-4.9); Hematocrit 27.3 % (36.0-45.0); Lymphocytes % 21.4 % (15.3-44.8); MCV 76.9 fL (80-100); MPV 8.1 fL (7.6-11.3); Platelets 366 thou/uL (152-406); RBC Red Blood Cell Count 3.55 M/uL (3.86-4.86)
[2023-02-23 23:34] LABS: Albumin 3.3 g/dL (3.4-5.0); Bilirubin Total 0.3 mg/dL (0.2-1.0); Protein, Total 7.3 g/dL (6.4-8.2)
[2023-02-24] MEDS ORDERED: NA CHLORIDE 0.9% 500 ML ONE (01:19)
== END 2023-02-24 02:56 | disposition short-term general hospital (02) ==
LOC: ER 21:58
DX: K92.2 Gastrointestinal hemorrhage, unspecified (principal)
CPT/HCPCS: 85025; 81001; 36415; 86900; 86850; 81025; 86901; 83690; 80053; C9113; J7050; J7040

== ENCOUNTER 2024-02-23 22:48 | Emergency (ER) | payer BC ==
[2024-02-24] MEDS ORDERED: ONDANSETRON 4 MG (ODT) TAB ONE (00:08)
[2024-02-24] MEDS ORDERED: lisinopriL 10 MG TAB ONE (00:08)
[2024-02-24] MEDS ORDERED: HYDRALAZINE HCL 25 MG TABLET ONE (00:08)
[2024-02-24 00:20] LABS: Absolute Basophils 0.1 K/uL (0-0.5); Absolute Eosinophils 0.2 K/uL (0-0.5); Absolute Lymphocytes (CBC) 2.4 K/uL (0.7-4.9); Absolute Monocytes 0.5 K/uL (0.1-1.3); Absolute Neutrophil 3.4 K/uL (1.8-8.0); Basophils % 1.1 % (0-1.3); Eosinophils % 2.5 % (0-4.4); Hematocrit 35.7 % (36.0-45.0); Hemoglobin 11.7 g/dL (12.0-15.0); Lymphocytes % 36.9 % (15.3-44.8); MCH 25.8 pg (27.0-35.0); MCHC 32.7 g/dL (32.0-36.0); MPV 7.8 fL (7.6-11.3); Monocytes % 7.5 % (3.3-12.3); Platelets 372 thou/uL (152-406); RBC Red Blood Cell Count 4.53 M/uL (3.86-4.86)
[2024-02-24 00:21] LABS: PT Prothrombin Time 10.9 SECONDS (9.4-12.5); Protime INR 0.97
[2024-02-24 00:41] LABS: ALT/SGPT 15 U/L (13-56); Albumin 3.5 g/dL (3.4-5.0); Albumin/Globulin Ratio 0.9 (1.1-1.8); Alkaline Phosphatase 56 U/L (45-117); Anion Gap 7.4 mEq/L (5.0-15.0); BUN Blood Urea Nitrogen 9 mg/dL (7-18); Bicarbonate 25 mEq/L (21-32); Bilirubin Total 0.3 mg/dL (0.2-1.0); Glomerular Filtration Rate 83 ml/min (=/>90); Glucose Level 100 mg/dL (74-106); NT PRO-BNP 96 pg/mL (<125); Potassium 3.4 mEq/L (3.5-5.1); Protein, Total 7.5 g/dL (6.4-8.2); Sodium Level 137 mEq/L (136-145); Troponin High Sensitivity 6.6 pg/mL (<58.9)
[2024-02-24 00:43] LABS: AST/SGOT < 10 U/L (15-37); Bilirubin Direct < 0.2 mg/dL (0-0.2); Bilirubin Indirect, Calculated 0.1 mg/dL (0.2-0.8)
[2024-02-24] MEDS ORDERED: DIAZEPAM 5 MG TABLET ONE (02:19)
--- NOTE | 2024-02-24 03:44 | EDPHYS ---
Physician Documentation [facility] Name: Cassia Mcconnell Age: 43 yrs Sex: Female : 1980 Arrival Date: 02/23/2024 Time: 22:48 Bed 26 Private MD: ED Physician Deejay Flores HPI: 02/22 23:23 This 43 yrs old Female presents to ER via Unassigned with complaints of High sp4 Blood Pressure, Numbness Of Face, Headache. 02/23 05:01 Presents with complaint of hypertension that has been uncontrolled for some years. sp4 Patient also reported dizziness facial numbness headache. . Historical: - Allergies: 02/22 23:32 No Known Allergies; jb4 - PMHx: 23:32 HTN; Anxiety; jb4 - PSHx: 23:32 ; Myomectomy; jb4 - Immunization history:: Adult Immunizations up to date. - Infectious Disease History:: Denies. - Social history:: Smoking status: Patient denies any tobacco usage or history of. Patient uses alcohol, occasionally. - Family history:: not pertinent. ROS: 02/23 05:01 Constitutional: Negative for fever, chills, and weight loss, positive for dizziness, sp4 positive facial numbness, positive headache All other systems are negative, Exam: 05:01 Constitutional: This is a well developed, well nourished patient who is awake, alert, sp4 and in no acute distress. Head/Face: Normocephalic, atraumatic. Eyes: Pupils equal round and reactive to light, extra-ocular motions intact. Lids and lashes normal. Conjunctiva and sclera are not injected. Cornea within normal limits. Periorbital areas with no swelling, redness, or edema. ENT: Nares patent. No nasal discharge, no septal abnormalities noted. Tympanic membranes are normal and external auditory canals are clear. Oropharynx with no redness, swelling, or masses, exudates, or evidence of obstruction, uvula midline. Mucous membranes moist. Neck: Trachea midline, no thyromegaly or masses palpated, and no cervical lymphadenopathy. Supple, full range of motion without nuchal rigidity, or vertebral point tenderness. Chest/axilla: Normal chest wall appearance and motion. Nontender with no deformity. No lesions are appreciated. Cardiovascular: Regular rate and rhythm with a normal S1 and S2. No gallops, murmurs, or rubs. Normal PMI, no JVD. No pulse deficits. Respiratory: Lungs have equal breath sounds bilaterally, clear to auscultation and percussion. No rales, rhonchi or wheezes noted. No increased work of breathing, no retractions or nasal flaring. Abdomen/GI: Soft, with normal bowel sounds. No distension or tympany. No guarding or rebound. No evidence of tenderness throughout. Back: No spinal tenderness. No costovertebral tenderness. Skin: Warm, dry with normal turgor. Normal color with no rashes, no lesions, and no evidence of cellulitis. MS/ Extremity: Pulses equal, no cyanosis. Neurovascular intact. Full, normal range of motion. Neuro: Awake and alert, GCS 15, oriented to person, place, time, and situation. Cranial nerves II-XII grossly intact. Motor strength 5/5 in all extremities. Sensory grossly intact. Psych: Awake, alert, with orientation to person, place and time. Behavior, mood, and affect are within normal limits 05:01 ECG was reviewed by the Attending Physician. EKG at 0017 normal sinus rhythm, normal EKG. EKG rate 66 Vital Signs: 02/22 23:04 BP 191 / 106; Pulse 79; Resp 18; Temp 98.6(O); Pulse Ox 100% on R/A; Weight 63.5 kg; oe Height 5 ft. 2 in. ; 23:54 BP 163 / 105; Pulse 68; Resp 16; Pulse Ox 100% on R/A; jb4 02/23 02:25 BP 170 / 100; Pulse 86; Resp 16; Pulse Ox 99% on R/A; jb4 04:01 BP 161 / 94; Pulse 74; Resp 17 S; Pulse Ox 100% on R/A; lg3 02/22 23:04 Body Mass Index 25.61 (63.50 kg, 157.48 cm) oe NIH Stroke Scale Scores: 05:03 NIHSS Score: 0 sp4 MDM: 02/22 23:27 Medical Screening Exam initiated sp4 02/23 03:41 ED course: TIME OF STUDY: 02/23/2024 11:47 PM CDT REASON FOR EXAM: CHEST PAIN sp4 COMPARISON: None. FINDINGS: AP view of the chest was obtained, chest 1 view. Lungs: Normal lung volume. No mass, or consolidation. Normal pulmonary vascularity.. Pleura: No pneumothorax. There is no pleural effusion. Heart and Mediastinum: Normal cardiomediastinal silhouette and great vessels.. Bones: No acute bony abnormality.. IMPRESSION: 1. No acute cardiopulmonary process.. 05:04 Differential diagnosis: hypertensive crisis, Malignant HTN. Data reviewed: vital signs, sp4 nurses notes, lab test result(s), EKG, radiologic studies, plain films. Consideration of Admission/Observation Patient was admitted/placed on observation. Escalation of care including admission/observation considered. ED course: Blood pressure has improved, stable for discharge home advised to take lisinopril which was prescribed by PMD. As needed Valium for anxiety.. 02/22 23:47 Order name: Basic Metabolic Panel; Complete Time: 02:06 sp4 02/22 23:47 Order name: CBC with Diff; Complete Time: 02:06 sp4 02/22 23:47 Order name: LFT's; Complete Time: 02:06 sp4 02/22 23:47 Order name: Magnesium; Complete Time: 02:06 sp4 02/22 23:47 Order name: NT PRO-BNP; Complete Time: 02:06 sp4 02/22 23:47 Order name: PT-INR; Complete Time: 02:06 sp4 02/22 23:47 Order name: Troponin HS; Complete Time: 02:06 sp4 02/22 23:47 Order name: XRAY Chest (1 view) 4 02/22 23:47 Order name: Cardiac monitoring; Complete Time: 00:05 sp4 02/22 23:47 Order name: EKG - Nurse/Tech; Complete Time: 00:20 sp4 02/22 23:47 Order name: IV Saline Lock; Complete Time: 00:05 sp4 02/22 23:47 Order name: Labs collected and sent; Complete Time: 00:05 sp4 02/22 23:47 Order name: O2 Per Protocol; Complete Time: 00:05 sp4 02/22 23:47 Order name: O2 Sat Monitoring; Complete Time: 00:05 sp4 EC:01 Rate is 66 beats/min. Rhythm is regular, Normal Sinus Rhythm. QRS [place] is Normal. ND sp4 interval is normal. QRS interval is normal. QT interval is normal. No Q waves. T waves are Normal. No ST changes noted. Clinical impression: Normal ECG. Interpreted by me. Reviewed by me. Administered Medications: 00:16 Drug: Lisinopril PO 10 mg PO once Route: PO; jb4 02:09 Follow up: Response: No adverse reaction; Marked relief of symptoms jb4 00:16 Drug: HydrALAZINE PO 25 mg PO once Route: PO; jb4 02:09 Follow up: Response: No adverse reaction; Marked relief of symptoms jb4 00:16 Drug: Ondansetron PO 4 mg PO once Route: PO; jb4 02:09 Follow up: Response: No adverse reaction; Marked relief of symptoms jb4 02:24 Not Given (Patient Refused): diazepam5 mg PO once jb4 Disposition: 05:04 Chart complete. sp4 Disposition Summary: 02/24/24 03:44 Discharge Ordered Notes: Location: Home sp4 Problem: new sp4 Symptoms: have improved sp4 Condition: Stable sp4 Diagnosis - Essential (primary) hypertension sp4 - Uncontrolled hypertension, acute anxiety sp4 Followup: sp4 - With: Private Physician - When: 7 - 10 days - Reason: Recheck today's complaints Discharge Instructions: - Discharge Summary Sheet sp4 - Hypertension, Adult, [id number] sp4 Forms: - Patient Portal Instructions sp4 Prescriptions: - Valium 5 mg Oral tablet - take 1 tablet ORAL route once daily As needed PRN anxiety; 20 tablet; Refills: sp4 0, Product Selection Permitted NIH Stroke Scale - NIH Stroke Score Date: 02/24/2024 Time: 05:03 Total Score = 0 10. Dysarthria (speech clarity - read or repeat words) - 0(Normal) 11. Extinction and Inattention (visual/tactile/auditory/spatial/personal) - 0(No abnormality) 1a. Level of Consciousness (LOC) - 0(Alert) 1b. Level of Consciousness (LOC) (Month \T\ Age) - 0(Both) 1c. LOC Commands (Open \T\ Closes Eyes/Ret[employer] Gift [employer] Merchandising) - 0(Both) 2. Best Gaze (Lateral Gaze Paresis) - 0(Normal) 3. Visual Field Loss - 0(No visual loss) 4. Facial Palsy - 0(Normal) 5a. Left Arm: Motor (10-second hold) - 0(No drift) 5b. Right Arm: Motor (10-second hold) - 0(No drift) 6a. Left Leg: Motor (5-second hold - always test supine) - 0(No drift) 6b. Right Leg: Motor (5-second hold - always test supine) - 0(No drift) 7. Limb Ataxia (finger/nose \T\ heel/underwood - test with eyes open) - 0(Absent) 8. Sensory Loss (pinprick arms/legs/face) - 0(Normal) 9. Best Language: Aphasia (description/naming/reading) - 0(No aphasia) Initials: sp4 Signatures: Dispatcher [employer] Jordon Kirkland RN RN jb4 Deejay Flores MD MD sp4 Corrections: (The following items were deleted from the chart) 02/22 23:32 23:32 PMHx: None; cristal jb4
--- NOTE | 2024-02-24 03:44 | ER ---
Nurse's Notes [facility] Name: Cassia Mcconnell Age: 43 yrs Sex: Female : 1980 Arrival Date: 02/23/2024 Time: 22:48 Bed 26 Private MD: Diagnosis: Essential (primary) hypertension;Uncontrolled hypertension, acute anxiety Presentation: 02/22 23:29 Chief complaint: Patient states: I have a slight headache and some numbness to the left jb4 side of my face. 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 Coronavirus screen: At this time, the client does not indicate any symptoms associated with coronavirus-19. Ebola Screen: No symptoms or risks identified at this time. Initial Sepsis Screen: Does the patient meet any 2 criteria? No. Patient's initial sepsis screen is negative. Does the patient have a suspected source of infection? No. Patient's initial sepsis screen is negative. Risk Assessment: Do you want to hurt yourself or someone else? Patient reports no desire to harm self or others. Onset of symptoms was February 23, 2024. Transition of care: patient was not received from another setting of care. 23:29 Method Of Arrival: Ambulatory jb4 23:29 Acuity: LUCINDA 3 jb4 Triage Assessment: 23:32 Headache History: Denies prior headaches. General: Appears in no apparent distress. jb4 comfortable, Behavior is calm, cooperative, appropriate for age. Pain: Complains of pain in headache Pain does not radiate. Pain currently is 2 out of 10 on a pain scale. Pain began 1 hour ago. EENT: No signs and/or symptoms were reported regarding the EENT system. Neuro: Level of Consciousness is awake, alert, obeys commands, Oriented to person, place, time, situation. Cardiovascular: Patient's skin is warm and dry. Respiratory: Airway is patent Respiratory effort is even, unlabored, Respiratory pattern is regular, symmetrical. GI: No signs and/or symptoms were reported involving the gastrointestinal system. : No signs and/or symptoms were reported regarding the genitourinary system. Derm: Skin is intact, Skin is pink, warm \T\ dry. Musculoskeletal: Circulation, motion, and sensation intact. Range of motion: intact in all extremities. Historical: - Allergies: 23:32 No Known Allergies; jb4 - PMHx: 23:32 HTN; Anxiety; jb4 - PSHx: 23:32 ; Myomectomy; jb4 - Immunization history:: Adult Immunizations up to date. - Infectious Disease History:: Denies. - Social history:: Smoking status: Patient denies any tobacco usage or history of. Patient uses alcohol, occasionally. - Family history:: not pertinent. Screenin/22 04:02 [facility] ED Fall Risk Assessment (Adult) History of falling in the last 3 months, lg3 including since admission No falls in past 3 months (0 pts) Confusion or Disorientation No (0 pts) Intoxicated or Sedated No (0 pts) Impaired Gait No (0 pts) Mobility Assist Device Used No (0 pt) Altered Elimination No (0 pt) Score/Fall Risk Level 0 - 2 = Low Risk Oriented to surroundings, Maintained a safe environment, Educated pt \T\ family on fall prevention, incl call for assistance when getting out of bed, Assessed \T\ reinforced patient's understanding of fall precautions. Abuse screen: Denies threats or abuse. Denies injuries from another. Nutritional screening: No deficits noted. Tuberculosis screening: No symptoms or risk factors identified. Assessment: 02/22 23:34 Reassessment: see triage note. jb4 02/23 01:06 Reassessment: Patient appears in no apparent distress at this time. Patient and/or jb4 family updated on plan of care and expected duration. Pain level reassessed. Patient is alert, oriented x 3, equal unlabored respirations, skin warm/dry/pink. 02:25 Reassessment: Patient appears in no apparent distress at this time. Patient and/or jb4 family updated on plan of care and expected duration. Pain level reassessed. Patient is alert, oriented x 3, equal unlabored respirations, skin warm/dry/pink. 04:01 Reassessment: Patient appears in no apparent distress at this time. Patient and/or lg3 family updated on plan of care and expected duration. Pain level reassessed. Patient is alert, oriented x 3, equal unlabored respirations, skin warm/dry/pink. Patient states feeling better. Patient states symptoms have improved. Vital Signs: 02/22 23:04 BP 191 / 106; Pulse 79; Resp 18; Temp 98.6(O); Pulse Ox 100% on R/A; Weight 63.5 kg; oe Height 5 ft. 2 in. ; 23:54 BP 163 / 105; Pulse 68; Resp 16; Pulse Ox 100% on R/A; jb4 02/23 02:25 BP 170 / 100; Pulse 86; Resp 16; Pulse Ox 99% on R/A; jb4 04:01 BP 161 / 94; Pulse 74; Resp 17 S; Pulse Ox 100% on R/A; lg3 02/22 23:04 Body Mass Index 25.61 (63.50 kg, 157.48 cm) oe NIH Stroke Scale Scores: 05:03 NIHSS Score: 0 sp4 ED Course: 02/22 22:52 Patient arrived in ED. gm2 23:23 Deejay Flores MD is Attending Physician. sp4 23:29 Jordon Pace, RN is Primary Nurse. jb4 23:32 Triage completed. jb4 23:32 Arm band placed on right wrist. jb4 02/23 00:05 Basic Metabolic Panel Sent. jb4 00:05 CBC with Diff Sent. jb4 00:05 LFT's Sent. jb4 00:05 Magnesium Sent. jb4 00:05 NT PRO-BNP Sent. jb4 00:05 PT-INR Sent. jb4 00:05 Troponin HS Sent. jb4 00:18 XRAY Chest (1 view) In Process Unspecified. EDMS 03:05 Report received from JOE Davis. lg3 04:02 Patient has correct armband on for positive identification. lg3 04:02 No provider procedures requiring assistance completed. IV discontinued, intact, lg3 bleeding controlled, No redness/swelling at site. Pressure dressing applied. Administered Medications: 00:16 Drug: Lisinopril PO 10 mg PO once Route: PO; jb4 02:09 Follow up: Response: No adverse reaction; Marked relief of symptoms jb4 00:16 Drug: HydrALAZINE PO 25 mg PO once Route: PO; jb4 02:09 Follow up: Response: No adverse reaction; Marked relief of symptoms jb4 00:16 Drug: Ondansetron PO 4 mg PO once Route: PO; jb4 02:09 Follow up: Response: No adverse reaction; Marked relief of symptoms jb4 02:24 Not Given (Patient Refused): diazepam5 mg PO once jb4 Medication: 04:03 VIS not applicable for this client. lg3 Outcome: 03:44 Discharge ordered by . sp4 04:02 Discharged to home ambulatory, with significant other, lg3 04:02 Condition: stable 04:02 Discharge instructions given to patient, Instructed on discharge instructions, follow up and referral plans. medication usage, Demonstrated understanding of instructions, follow-up care, medications, Prescriptions given X 1, 04:03 Patient left the ED. lg3 NIH Stroke Scale - NIH Stroke Score Date: 02/24/2024 Time: 05:03 Total Score = 0 10. Dysarthria (speech clarity - read or repeat words) - 0(Normal) 11. Extinction and Inattention (visual/tactile/auditory/spatial/personal) - 0(No abnormality) 1a. Level of Consciousness (LOC) - 0(Alert) 1b. Level of Consciousness (LOC) (Month \T\ Age) - 0(Both) 1c. LOC Commands (Open \T\ Closes Eyes/[employer]ive Developer) - 0(Both) 2. Best Gaze (Lateral Gaze Paresis) - 0(Normal) 3. Visual Field Loss - 0(No visual loss) 4. Facial Palsy - 0(Normal) 5a. Left Arm: Motor (10-second hold) - 0(No drift) 5b. Right Arm: Motor (10-second hold) - 0(No drift) 6a. Left Leg: Motor (5-second hold - always test supine) - 0(No drift) 6b. Right Leg: Motor (5-second hold - always test supine) - 0(No drift) 7. Limb Ataxia (finger/nose \T\ heel/underwood - test with eyes open) - 0(Absent) 8. Sensory Loss (pinprick arms/legs/face) - 0(Normal) 9. Best Language: Aphasia (description/naming/reading) - 0(No aphasia) Initials: sp4 Signatures: Dispatcher [employer] EDMS Jordon Pace, JOE RN jb4 oJce Box Lacie, RN RN lg3 Deejay Flores MD MD sp4 Garima Higginbotham gm2 Corrections: (The following items were deleted from the chart) 02/22 23:32 23:32 PMHx: None; cristal bee
--- NOTE | 2024-02-24 06:14 | RAD REPORT ---
TIME OF STUDY: 02/23/2024 11:47 PM CDT REASON FOR EXAM: CHEST PAIN COMPARISON: None. FINDINGS: AP view of the chest was obtained, chest 1 view. Lungs: Normal lung volume. No mass, or consolidation. Normal pulmonary vascularity.. Pleura: No pneumothorax. There is no pleural effusion. Heart and Mediastinum: Normal cardiomediastinal silhouette and great vessels.. Bones: No acute bony abnormality.. IMPRESSION: 1. No acute cardiopulmonary process. Electronically signed by: Donell Fragoso MD 02/24/2024 12:29 AM CDT RP Due to temporary technical issues with the PACS/Inktd reporting system, reports are being leonila d by the in-house radiologist without review as a courtesy to ensure prompt reporting the interpreting radiologist is fully responsible for the content of the report. Transcribed Date/Time: 02/24/2024 6:14 AM
[2024-02-24 08:56] VITALS: TEMP 98.6
[2024-02-24 09:11] VITALS: BP 161/94; O2SAT 100
--- NOTE | 2024-02-24 12:50 | EKG ---
Test Date: 2024-02-24 Test Time: 00:17:58 [employer]: SAVANNA MEASUREMENT RESULTS: Intervals: Rate: 66 ND: 138 QRSD: 74 QT: 414 QTc: 434 [place]: P: 29 ND: 138 QRS: 55 T: 63 INTERPRETIVE STATEMENTS: Normal sinus rhythm Septal infarct, age undetermined Abnormal ECG No previous ECG available for comparison Electronically Signed On 02-24-24 12:48:39 CDT by Richard Miranda
== END 2024-02-24 04:03 | disposition home or self-care (01) ==
LOC: ER 22:48
DX: I10 Essential (primary) hypertension (principal); F41.9 Anxiety disorder, unspecified
CPT/HCPCS: 93005; 85025; 80048; 36415; 83735; 85610; 80076; 84484; 83880; 71045; Q0162